=== PATIENT | male | born 1975 | race Caucasian/White ===

== ENCOUNTER 2018-05-10 15:13 | Outpatient (RCR) | payer MEDICARE, MEDICAID | END 2018-05-21 | LOC: M OUTALCOH 05-16 08:45 | DX: F10.20 Alcohol dependence, uncomplicated (principal); F17.200 Nicotine dependence, unspecified, uncomplicated | CPT/HCPCS: 90832 ==

== ENCOUNTER → 2018-08-03 | Outpatient (CLI) | payer MEDICARE | LOC: M OUTALCOH 07:37 | DX: F10.20 Alcohol dependence, uncomplicated (principal) ==

== ENCOUNTER 2018-09-02 10:22 | Day surgery (SDC) | payer MEDICARE, MEDICAID ==
[2018-09-02] MEDS ORDERED: ROPIvacaine 0.5% 30 ML INJECTION (J2795 PER 1MG) (10:23)
[2018-09-02] MEDS ORDERED: EPINEPHrine INJ 1 MG/ML 1ML AMP (10:23)
[2018-09-02] MEDS ORDERED: dexameTHASONE 10 MG/1 ML VIAL PRES.FREE (J1100) (10:23)
[2018-09-02] MEDS ORDERED: LR 1,000 ML IV ×3 (11:00→15:45)
[2018-09-02] MEDS ORDERED: MIDAZOLAM INJ 2 MG/2 ML VIAL (J2250) As Ordered ×2 (11:59→13:58)
[2018-09-02] MEDS ORDERED: fentaNYL 100 MCG/2 ML INJECTION (J3010) As Ordered ×3 (11:59→15:08)
[2018-09-02] MEDS: MIDAZOLAM INJ 2 MG/2 ML VIAL (J2250) IV (12:30)
[2018-09-02] MEDS: fentaNYL 100 MCG/2 ML INJECTION (J3010) IV ×5 (12:30→15:40)
[2018-09-02] MEDS ORDERED: ROCURONIUM BROMIDE 50 MG/5 ML VIAL As Ordered (13:58)
[2018-09-02] MEDS ORDERED: dexameTHASONE 4 MG/ML 1ML VIAL (J1100) As Ordered (13:58)
[2018-09-02] MEDS ORDERED: ONDANSETRON 4MG/2ML VIAL (J2405) As Ordered (13:58)
[2018-09-02] MEDS ORDERED: fentaNYL 250 MCG/5 ML INJECTION (J3010) As Ordered (13:58)
[2018-09-02] MEDS ORDERED: PROPOFOL 200 MG/20 ML VIAL As Ordered ×2 (13:58→14:35)
[2018-09-02] MEDS ORDERED: LIDOCAINE 2% INJ 100 MG/5 ML SDV (FOR ANES.) As Ordered (13:58)
[2018-09-02] MEDS: ceFAZolin 1GM INJ (J0690 PER 500MG) As Ordered (14:18)
[2018-09-02] MEDS ORDERED: GLYCOPYRROLATE INJ 0.2 MG/ML 2 ML VIAL As Ordered ×2 (14:30)
[2018-09-02] MEDS ORDERED: NEOSTIGMINE 10 MG/10 ML VIAL (J2710) As Ordered (14:30)
[2018-09-02] MEDS ORDERED: ePHEDrine SULFATE 25 MG/5 ML(5MG/ML) SYRINGE As Ordered (14:34)
[2018-09-02] MEDS ORDERED: PERCOCET 5MG/325MG TAB As Ordered (15:08)
[2018-09-02] MEDS: PERCOCET 5MG/325MG TAB PO ×2 (15:13→15:48)
[2018-09-02] MEDS ORDERED: NORCO, ANEXSIA 5/325MG TABLET (HYDROcodone/ACETAMINOPHEN) PO ×2 (15:45)
[2018-09-02] MEDS ORDERED: MORPHINE 4 MG/ML 1ML VIAL/SYRINGE (J2270) IV (15:45)
[2018-09-02] MEDS ORDERED: ONDANSETRON 4MG/2ML VIAL (J2405) IV (15:45)
== END 2018-09-02 17:40 | disposition home or self-care (01) ==
LOC: M SDC 17:40
DX: S42.251A Displaced fracture of greater tuberosity of right humerus, initial encounter for closed fracture (principal); M75.121 Complete rotator cuff tear or rupture of right shoulder, not specified as traumatic; W19.XXXA Unspecified fall, initial encounter; Y92.511 Restaurant or cafe as the place of occurrence of the external cause; Y93.9 Activity, unspecified; K21.9 Gastro-esophageal reflux disease without esophagitis; M25.551 Pain in right hip; I10 Essential (primary) hypertension; F17.210 Nicotine dependence, cigarettes, uncomplicated; Z79.899 Other long term (current) drug therapy; Z91.013 Allergy to seafood; Z91.018 Allergy to other foods; Y99.9 Unspecified external cause status
CPT/HCPCS: 23630

== ENCOUNTER → 2018-12-30 | Outpatient (CLI) | payer MEDICARE, MEDICAID ==
[~2018-12-30] MED LIST: ADDE10CA3 PO; ADDE30CA3 PO; CEPH500C PO; DEPA250T2 PO; FLUO10CA8 PO; FOLI1TAB11 PO; HYDR50TA70 PO; LAMI25TA PO; OMEP20CA3 PO; TAB-TAB PO; VITA100072 PO; VITA500C24 PO
== END ==
LOC: M OUTALCOH 08:43
PROVIDERS: ATTEND Psychiatry & Neurology Psychiatry
DX: Z13.89 Encounter for screening for other disorder (principal); F10.20 Alcohol dependence, uncomplicated

== ENCOUNTER 2019-01-10 10:06 | Outpatient (RCR) | payer MEDICARE, MEDICAID | END 2019-01-19 | LOC: M OUTALCOH 10:06 | PROVIDERS: ATTEND Psychiatry & Neurology Psychiatry | DX: F10.20 Alcohol dependence, uncomplicated (principal); F17.200 Nicotine dependence, unspecified, uncomplicated ==

== ENCOUNTER 2019-01-23 14:49 | Outpatient (RCR) | payer MEDICARE, MEDICAID ==
[2019-02-15] MEDS ORDERED: VYVA40CA3 PO (14:26)
[2019-02-15] MEDS ORDERED: QUET1TAB7 PO (14:26)
[2019-02-15] MEDS ORDERED: SUMA50TA2 PO (14:26)
[2019-02-15] MEDS ORDERED: SENE8.6T PO (14:26)
[2019-02-15] MEDS ORDERED: LISI10TA4 PO (14:31)
== END 2019-02-19 ==
LOC: M OUTALCOH 14:49
PROVIDERS: ATTEND Psychiatry & Neurology Psychiatry
DX: F10.20 Alcohol dependence, uncomplicated (principal); F17.200 Nicotine dependence, unspecified, uncomplicated

== ENCOUNTER 2019-03-11 00:11 | Emergency (ER) | payer MEDICARE, MEDICAID ==
[~2019-03-11] VITALS: Ht 175.3 cm; Wt 95.5 kg
[~2019-03-11 00:11] MED LIST changes: +LISI10TA4 PO; +QUET1TAB7 PO; +SENN1TAB38 PO; +SUMA50TA2 PO; +VITA100018 PO; -VITA100072 PO; +VYVA40CA3 PO
[2019-03-11 01:18] LABS: HEMATOCRIT 48.3 % (42.0-52.0); HEMOGLOBIN 16.9 g/dl (13.5-17.5); MEAN CORPUSCULAR HEMOGLOBIN 31.2 pg (27.0-33.0); MEAN CORPUSCULAR VOLUME 89.3 fl (80.0-96.0); PLATELET COUNT, AUTOMATED 283 10^3/uL (150-450); RED BLOOD COUNT 5.41 10^6/uL (4.30-6.10); WHITE BLOOD COUNT 10.1 10^3/uL (4.0-10.0)
[2019-03-11 01:56] LABS: ACETAMINOPHEN LEVEL < 2.0 UG/ML (10.0-30.0); ALBUMIN 4.1 GM/DL (3.2-5.2); ALT/SGPT 86 U/L (12-78); BILIRUBIN,DIRECT < 0.1 MG/DL (0.0-0.2); BILIRUBIN,TOTAL 0.3 MG/DL (0.2-1.0); BLOOD UREA NITROGEN 10 MG/DL (7-18); CALCIUM LEVEL 9.1 MG/DL (8.5-10.1); CARBON DIOXIDE LEVEL 24 MEQ/L (21-32); CHLORIDE LEVEL 107 MEQ/L (98-107); CREATININE FOR GFR 0.91 MG/DL (0.70-1.30); ETHYL ALCOHOL (ETHANOL) 0.189 % (0.000-0.010); GLOMERULAR FILTRATION RATE > 60.0 (>60); GLUCOSE, FASTING 95 MG/DL (70-100); POTASSIUM SERUM 4.2 MEQ/L (3.5-5.1); SALICYLATE LEVEL 5.1 MG/DL (5.0-30.0); SODIUM LEVEL 143 MEQ/L (136-145); TOTAL PROTEIN 7.9 GM/DL (6.4-8.2)
[2019-03-11] MEDS ORDERED: ACETAMINOPHEN TAB 650MG DOSE (2X325MG) PO ONE (02:00)
[2019-03-11 02:02] LABS: AMPHETAMINES LEVEL URINE NEGATIVE (NEGATIVE); BARBITURATES URINE NEGATIVE (NEGATIVE); BENZODIAZEPINES URINE NEGATIVE (NEGATIVE); CANNABINOIDS URINE POSITIVE (NEGATIVE); COCAINE METABOLITE URINE NEGATIVE (NEGATIVE); METHADONE URINE NEGATIVE (NEGATIVE); OPIATES URINE NEGATIVE (NEGATIVE); PHENCYCLIDINE URINE NEGATIVE (NEGATIVE)
[2019-03-11] MEDS ORDERED: IBUPROFEN 600 MG TAB PO ONE (09:00)
[2019-03-11 12:51] VITALS: BP 144/80
== END 2019-03-11 12:59 | disposition home or self-care (01) ==
LOC: M ED 00:11
DX: F10.10 Alcohol abuse, uncomplicated (principal); F12.10 Cannabis abuse, uncomplicated; Z87.820 Personal history of traumatic brain injury; Z91.013 Allergy to seafood; Z91.018 Allergy to other foods; Z79.899 Other long term (current) drug therapy
CPT/HCPCS: 80048; 80076; 80307; 84443; 85027; 99284; G0480

== ENCOUNTER → 2019-04-20 | Outpatient (REF) | payer MEDICARE, MEDICAID | LOC: M SFHCLERA 14:00 | PROVIDERS: ATTEND Family Medicine | DX: I10 Essential (primary) hypertension (principal); Z53.8 Procedure and treatment not carried out for other reasons ==